=== PATIENT | female | born 2000 | race Caucasian/White ===

== ENCOUNTER 2020-11-25 06:08 | Inpatient (IN) ==
[2020-11-25] MEDS ORDERED: Ondansetron 4 MG/2 ML VIAL IVP PRN (06:16)
[2020-11-25] MEDS ORDERED: Naloxone 0.4 MG/ML INJ IVP PRN (06:16)
[2020-11-25] MEDS ORDERED: Famotidine 20 MG/2 ML VIAL IVP PRN (06:16)
[2020-11-25] MEDS ORDERED: Metoclopramide 10 MG/2 ML VIAL IVP PRN (06:16)
[2020-11-25] MEDS ORDERED: Lidocaine 1% 20 ML MDV INFILT PRN (06:16)
[2020-11-25] MEDS ORDERED: Penicillin G Potassium 5,000,000 UNIT in 0.9 % Sodium Chloride Mini Bag 100 ML IVPB ONE (06:19)
[2020-11-25] MEDS ORDERED: miSOPROStoL 25 MCG TABLET PO PRN (06:20)
[2020-11-25] MEDS ORDERED: *HR* Nalbuphine 10 MG/ML AMPUL IV PRN (06:22)
[2020-11-25] MEDS ORDERED: EPHEDrine 50 MG/ML VIAL IVP PRN ×2 (06:30→09:51)
[2020-11-25 07:22] LABS: Basophils # 0.1 K/mcL (0.0-0.2); Basophils % 0.4 %; Eosinophils # 0.2 K/mcL (0.0-0.6); Eosinophils % 1.4 %; Hemoglobin 11.6 g/dL (11.5-15.4); Immature Granulocytes % 0.4 % (0-4); Lymphocytes # 2.4 K/mcL (0.6-4.6); Mean Corpuscular HGB Conc 32.2 g/dL (31.6-35.5); Mean Corpuscular Hemoglobin 26.7 pg (28.0-33.3); Mean Corpuscular Volume 82.9 fL (83.0-100.0); Mean Platelet Volume 12.7 fL (9.4-12.4); Monocytes # 0.9 K/mcL (0.0-1.3); Monocytes % 7.6 %; Neutrophils # 8.4 K/mcL (1.6-8.9); Platelet Count 150 K/mcL (140-400); Red Blood Count 4.34 M/mcL (3.82-4.97); Red Cell Distribution Width 13.7 % (11.5-14.5); Segmented Neutrophils % 70.2 %
[2020-11-25] MEDS: Ringers Solution, Lactated 1,000 ML IVC SCH ×4 (07:42→16:47)
[2020-11-25 08:48] LABS: Adenovirus Not Detected (Not Detect); Bordetella Pertussis Not Detected (Not Detect); Chlamydophila pneumoniae Not Detected (Not Detect); Coronavirus 229E Not Detected (Not Detect); Coronavirus HKU1 Not Detected (Not Detect); Coronavirus NL63 Not Detected (Not Detect); Coronavirus OC43 Not Detected (Not Detect); Human Metapneumovirus Not Detected (Not Detect); Human Rhinovirus/Enterovirus Not Detected (Not Detect); Influenza A Subtype 2009 H1 Not Detected (Not Detect); Influenza B Not Detected (Not Detect); Mycoplasma pneumoniae Not Detected (Not Detect); Parainfluenza Virus 1 Not Detected (Not Detect); Parainfluenza Virus 2 Not Detected (Not Detect); Parainfluenza Virus 3 Not Detected (Not Detect); Parainfluenza Virus 4 Not Detected (Not Detect); Respiratory Syncytial Virus Not Detected (Not Detect); SARS-CoV-2 Not Detected (Not Detect)
[2020-11-25 09:11] LABS: Amphetamine Screen,Urine Negative ng/mL (Cutoff=1000); Barbiturate Screen,Urine Negative ng/mL (Cutoff=200); Benzodiazepines Screen,Urine Negative ng/mL (Cutoff=200); Cannabinoid Screen,Urine Negative ng/mL (Cutoff = 50); Cocaine Screen,Urine Negative ng/mL (Cutoff= 300); Opiate Screen,Urine Negative ng/mL (Cutoff=300); Phencyclidine Screen,Urine Negative ng/mL (Cutoff=25)
[2020-11-25] MEDS ORDERED: Ropivacaine/PF 0.2% 20 ML VIAL EP ONE (09:51)
[2020-11-25] MEDS ORDERED: *HR* FentaNYL (PF) 100 MCG/2 ML VIAL EP ONE (09:51)
[2020-11-25] MEDS: Epidural Premix (fent/bupiv) 110 ML EP SCH ×2 (10:35→19:02)
[2020-11-25] MEDS: Penicillin G Potassium 2,500,000 UNIT/105 ML MLS IVPB SCH ×3 (11:54→20:37)
[2020-11-25] MEDS ORDERED: Oxytocin 20 units/ LR 1000 mL 20 UNIT/1,000 ML BAG IVC ONE (12:24)
[2020-11-25] MEDS ORDERED: Oxytocin 20 units/ LR 1000 mL 20 UNIT/1,000 ML BAG IVC SCH (12:30)
[2020-11-25] MEDS ORDERED: *HR* FentaNYL (PF) 100 MCG/2 ML VIAL ONE (19:57)
[2020-11-25] MEDS ORDERED: *HR* Ropivacaine/PF 0.5% 20 ML VIAL ONE (21:57)
[2020-11-25] MEDS ORDERED: *HR* Succinylcholine 200 MG/10 ML VIAL IVP ONE (23:34)
[2020-11-25] MEDS ORDERED: Lidocaine/EPI 1:200k 2% PF 20 ML VIAL ONE (23:55)
[2020-11-25] MEDS ORDERED: CeFAZolin 2,000 MG/50 ML BAG IVPB ONE (23:58)
[2020-11-25] MEDS ORDERED: Terbutaline 1 MG/ML VIAL SQ ONE (23:58)
[2020-11-26] MEDS ORDERED: Terbutaline 1 MG/ML VIAL SQ ONE
[2020-11-26] MEDS ORDERED: Dexamethasone 4 MG/ML VIAL ONE (00:03)
[2020-11-26] MEDS ORDERED: Ondansetron 4 MG/2 ML VIAL ONE (00:03)
[2020-11-26] MEDS ORDERED: Acetaminophen IV 1,000 MG/100 ML BAG IVPB ONE (00:04)
[2020-11-26] MEDS ORDERED: *HR* Morphine Sulfate/PF 10 MG/10 ML AMPUL ONE (00:04)
[2020-11-26] MEDS ORDERED: Azithromycin 500 MG in 0.9 % Sodium Chloride 250 ML IVPB ONE (00:10)
[2020-11-26] MEDS ORDERED: Ketorolac 30 MG/ML VIAL ONE (00:44)
[2020-11-26] MEDS ORDERED: *HR* OxyCODONE Immed Rel 5 MG TABLET PO PRN (00:47)
[2020-11-26] MEDS ORDERED: Ondansetron 4 MG/2 ML VIAL IVP PRN ×2 (00:47→03:48)
[2020-11-26] MEDS ORDERED: *HR* HYDROmorphone PF 0.5 MG/0.5 ML SYRINGE IVP PRN (00:47)
[2020-11-26] MEDS ORDERED: Sennosides 8.6 MG TABLET PO PRN (03:48)
[2020-11-26] MEDS ORDERED: Ringers Solution, Lactated 1,000 ML IVC SCH (03:48)
[2020-11-26] MEDS ORDERED: Oxytocin 20 units/ LR 1000 mL 20 UNIT/1,000 ML BAG IVC SCH (03:48)
[2020-11-26] MEDS ORDERED: Metoclopramide 10 MG/2 ML VIAL IVP PRN (03:48)
[2020-11-26] MEDS ORDERED: Simethicone 80 MG TAB.CHEW PO PRN (03:48)
[2020-11-26] MEDS ORDERED: Measles/Mumps/Rubella Vacc 0.5 ML VIAL SQ ONE (07:13)
[2020-11-26] MEDS: Acetaminophen 325 MG TABLET PO PRN ×2 (08:05→20:49)
[2020-11-26] MEDS: Prenatal Vit/FA 1 EACH TABLET PO SCH (08:05)
[2020-11-26] MEDS: Ibuprofen 600 MG TABLET PO PRN ×3 (08:06→23:40)
[2020-11-26] MEDS: *HR* OxyCODONE Immed Rel 5 MG TABLET PO PRN (15:29)
[2020-11-26 15:57] LABS: Basophils % 0.1 %; Eosinophils % 0.1 %; Hematocrit 26.7 % (35.3-44.9); Immature Granulocytes % 0.6 % (0-4); Lymphocytes # 1.9 K/mcL (0.6-4.6); Lymphocytes % 13.7 %; Mean Corpuscular HGB Conc 32.6 g/dL (31.6-35.5); Mean Corpuscular Hemoglobin 27.3 pg (28.0-33.3); Mean Corpuscular Volume 83.7 fL (83.0-100.0); Monocytes # 1.3 K/mcL (0.0-1.3); Monocytes % 9.3 %; Neutrophils # 10.7 K/mcL (1.6-8.9); Platelet Count 124 K/mcL (140-400); Red Blood Count 3.19 M/mcL (3.82-4.97); Red Cell Distribution Width 13.6 % (11.5-14.5); Segmented Neutrophils % 76.2 %; White Blood Count 14.1 K/mcL (4.3-11.1)
[2020-11-26 15:58] LABS: Hemoglobin 8.7 g/dL (11.5-15.4)
[2020-11-27] MEDS: Ibuprofen 600 MG TABLET PO PRN ×3 (08:48→20:33)
[2020-11-27] MEDS: Prenatal Vit/FA 1 EACH TABLET PO SCH (08:48)
[2020-11-27] MEDS: Acetaminophen 325 MG TABLET PO PRN (17:32)
[2020-11-28] MEDS: Ibuprofen 600 MG TABLET PO PRN ×2 (02:17→15:31)
[2020-11-28 03:42] LABS: Basophils % 0.4 %; Eosinophils # 0.3 K/mcL (0.0-0.6); Eosinophils % 2.4 %; Hematocrit 27.4 % (35.3-44.9); Hemoglobin 8.8 g/dL (11.5-15.4); Immature Granulocytes % 0.5 % (0-4); Lymphocytes # 2.9 K/mcL (0.6-4.6); Mean Corpuscular HGB Conc 32.1 g/dL (31.6-35.5); Mean Corpuscular Hemoglobin 26.7 pg (28.0-33.3); Mean Platelet Volume 12.4 fL (9.4-12.4); Monocytes # 0.7 K/mcL (0.0-1.3); Monocytes % 6.5 %; Neutrophils # 7.1 K/mcL (1.6-8.9); Platelet Count 118 K/mcL (140-400); Red Cell Distribution Width 13.8 % (11.5-14.5); Segmented Neutrophils % 64.2 %
[2020-11-28] MEDS: Prenatal Vit/FA 1 EACH TABLET PO SCH (08:11)
[2020-11-28] MEDS: Acetaminophen 325 MG TABLET PO PRN ×2 (08:12→20:04)
[2020-11-28] MEDS ORDERED: Etonogestrel 68 MG IMPLANT IL ONE (10:07)
[2020-11-28] MEDS ORDERED: Lidocaine/EPI 1:100k 1% 30 ML VIAL INFILT ONE (10:30)
[2020-11-29] MEDS: *HR* OxyCODONE Immed Rel 5 MG TABLET PO PRN (00:02)
[2020-11-29] MEDS: Ibuprofen 600 MG TABLET PO PRN ×2 (06:09→11:57)
[2020-11-29] MEDS: Acetaminophen 325 MG TABLET PO PRN (07:23)
[2020-11-29] MEDS: Prenatal Vit/FA 1 EACH TABLET PO SCH (07:24)
[2020-11-29] MEDS ORDERED: Measles/Mumps/Rubella Vacc 0.5 ML VIAL SQ ONE (07:55)
[2020-11-29 08:14] VITALS: BP 147/96
== END 2020-11-29 12:25 | disposition home or self-care (01) | DRG 560 ==
LOC: 1NENULAB 06:08 → 1NENUOBS 11-26 03:57
PROVIDERS: ADMIT Advanced Practice Midwife; ATTEND Advanced Practice Midwife

== ENCOUNTER 2022-03-25 14:29 | Observation (INO) ==
[2022-03-25] MEDS ORDERED: *HR* Promethazine 25 MG/ML VIAL IM PRN (14:45)
[2022-03-25] MEDS ORDERED: *HR* OxyCODONE Immed Rel 5 MG TABLET PO PRN ×2 (14:45→17:17)
[2022-03-25] MEDS ORDERED: Ondansetron 4 MG/2 ML VIAL IVP PRN ×2 (14:45→17:17)
[2022-03-25] MEDS ORDERED: Acetaminophen 325 MG TABLET PO PRN (14:45)
[2022-03-25] MEDS ORDERED: *HR* HYDROcodone/Acet 5/325 mg TABLET PO PRN (14:45)
[2022-03-25] MEDS ORDERED: Naloxone 0.4 MG/ML INJ IVP PRN ×2 (14:45→17:17)
[2022-03-25] MEDS ORDERED: CeFAZolin 2,000 MG/120 ML BAG IVPB SCH (16:00)
[2022-03-25] MEDS ORDERED: MetroNIDAZOLE 500 MG/100 ML 500 MG/100 ML BAG IVPB SCH (16:00)
[2022-03-25] MEDS ORDERED: Morphine Sulfate 2 MG/ML SYRINGE IVP ONE (16:06)
[2022-03-25] MEDS ORDERED: *HR* Propofol 200 MG/20 ML VIAL IVP ONE (17:07)
[2022-03-25] MEDS ORDERED: *HR* Midazolam HCl 2 MG/2 ML VIAL ONE (17:07)
[2022-03-25] MEDS ORDERED: *HR* FentaNYL (PF) 100 MCG/2 ML VIAL ONE (17:07)
[2022-03-25] MEDS ORDERED: Lidocaine HCL 4 ML Topical Solution (Laryng-O-Jet Kit Sterile Pak) TP ONE (17:08)
[2022-03-25] MEDS ORDERED: Ondansetron 4 MG/2 ML VIAL ONE (17:08)
[2022-03-25] MEDS ORDERED: Lidocaine -MPF 2% 2 ML VIAL ONE (17:08)
[2022-03-25] MEDS ORDERED: *HR* Rocuronium Bromide 50 MG/5 ML VIAL ONE (17:08)
[2022-03-25] MEDS ORDERED: *HR* Labetalol 20 MG/4 ML SYRINGE IVP PRN (17:17)
[2022-03-25] MEDS ORDERED: Racepinephrine Neb 0.5 ML VIAL IH PRN (17:17)
[2022-03-25] MEDS ORDERED: Scopolamine Patch 1.5 MG PATCH.TD72 TD ONE (17:17)
[2022-03-25] MEDS ORDERED: *HR* Meperidine 25 MG/ML SYRINGE IVP PRN (17:17)
[2022-03-25] MEDS ORDERED: flumazeniL 0.5 MG/5 ML VIAL IVP PRN (17:17)
[2022-03-25] MEDS ORDERED: Ipratropium Neb 0.5 MG NEBULIZER IH PRN (17:17)
[2022-03-25] MEDS ORDERED: Acetaminophen IV 1,000 MG/100 ML BAG IVPB PRN (17:17)
[2022-03-25] MEDS ORDERED: Famotidine 20 MG/2 ML VIAL IVP ONE (17:17)
[2022-03-25] MEDS ORDERED: Ketorolac 30 MG/ML VIAL IVP PRN (17:17)
[2022-03-25] MEDS ORDERED: *HR* FentaNYL (PF) 100 MCG/2 ML VIAL IVP PRN (17:17)
[2022-03-25] MEDS ORDERED: *HR* HYDROmorphone PF 0.5 MG/0.5 ML SYRINGE IVP PRN ×2 (17:17→19:18)
[2022-03-25] MEDS ORDERED: Promethazine 6.25 MG in Water for inj. (sterile) 20 ML IVPB PRN (17:17)
[2022-03-25] MEDS ORDERED: Albuterol 2.5 MG/3 ML NEBULIZER IH PRN (17:17)
[2022-03-25] MEDS: 0.9 % Sodium Chloride 1,000 ML IVC SCH (17:20)
[2022-03-25] MEDS ORDERED: Famotidine 20 MG/2 ML VIAL ONE (18:18)
[2022-03-25] MEDS ORDERED: Sugammadex Sodium 200 MG/2 ML VIAL IV ONE (18:45)
[2022-03-25] MEDS ORDERED: *HR* HYDROMORPHONE 2 MG/ML VIAL ONE (18:46)
[2022-03-26 05:26] LABS: Basophils % 0.1 %; Hematocrit 36.7 % (35.3-44.9); Hemoglobin 12.1 g/dL (11.5-15.4); Immature Granulocytes % 0.5 % (0-4); Immature Platelets 14.4 % (1.1-6.1); Lymphocytes # 1.1 K/mcL (0.6-4.6); Lymphocytes % 9.8 %; Mean Platelet Volume 13.1 fL (9.4-12.4); Monocytes # 0.2 K/mcL (0.0-1.3); Monocytes % 2.1 %; Neutrophils # 9.6 K/mcL (1.6-8.9); Platelet Count 107 K/mcL (140-400); Red Blood Count 4.32 M/mcL (3.82-4.97); Red Cell Distribution Width 13.1 % (11.5-14.5); Segmented Neutrophils % 87.5 %
[2022-03-26 05:42] LABS: Alanine Aminotransferase 13 Units/L (7-52); Albumin 3.8 g/dL (3.5-5.7); Alkaline Phosphatase 51 Units/L (34-104); Aspartate Amino Transferase 12 Units/L (13-39); BUN/Creatinine Ratio 11 (6-26); Bilirubin,Total 0.5 mg/dL (0.3-1.0); Blood Urea Nitrogen 7 mg/dL (6-20); Calcium 8.7 mg/dL (8.6-10.3); Carbon Dioxide 22 mEq/L (23-29); Chloride 110 mEq/L (98-107); Globulin 1.9 g/dL (2.4-3.5); Glucose 126 mg/dL (70-105); Osmolality,Calculated 286 (280-300); Potassium 3.6 mEq/L (3.5-5.1); Sodium 138 mEq/L (136-145); Total Protein 5.7 g/dL (6.4-8.9); eGFR For African Americans > 60 (> 60); eGFR For Non-African Americans > 60 (> 60)
[2022-03-26 06:33] VITALS: BP 122/78; PULSE 98; TEMP 98.3; O2SAT 94
[2022-03-26] MEDS: 0.9 % Sodium Chloride 1,000 ML IVC SCH (07:35)
== END 2022-03-26 08:22 | disposition home or self-care (01) ==
LOC: 3BNU 14:29 → EMEROOARM 14:29 → SUATTDRO 15:10 → 3BNU 16:21
PROVIDERS: ADMIT Student in an Organized Health Care Education/Training Program; ATTEND Nurse Practitioner